=== PATIENT | male | born 1975 | race Caucasian/White ===

== ENCOUNTER 2022-08-12 10:27 | Outpatient (CLI) | payer BC | END 2022-08-12 10:28 | disposition home or self-care (01) | LOC: CSHMRI 10:27 | PROVIDERS: ATTEND Psychiatry & Neurology Neurology | DX: G35 Multiple sclerosis (principal); M50.322 Other cervical disc degeneration at C5-C6 level; G95.89 Other specified diseases of spinal cord | CPT/HCPCS: 70553; 72156; 72157 ==

== ENCOUNTER 2023-10-24 13:13 | Outpatient (CLI) | payer BC | END 2023-10-24 13:14 | disposition home or self-care (01) | LOC: CSHMRI 13:13 | PROVIDERS: ATTEND Anesthesiology | DX: M96.1 Postlaminectomy syndrome, not elsewhere classified (principal); M47.816 Spondylosis without myelopathy or radiculopathy, lumbar region; M48.061 Spinal stenosis, lumbar region without neurogenic claudication | CPT/HCPCS: 72148 ==